=== PATIENT | male | born 1985 | race Caucasian/White ===

== ENCOUNTER 2017-06-27 00:22 | Emergency (ER) | payer SELFPAY ==
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
== END 2017-06-27 01:57 | disposition home or self-care (01) ==
LOC: NAV ERS 00:22
DX: S00.93XA Contusion of unspecified part of head, initial encounter (principal); F43.10 Post-traumatic stress disorder, unspecified; F17.210 Nicotine dependence, cigarettes, uncomplicated; Y04.0XXA Assault by unarmed brawl or fight, initial encounter
CPT/HCPCS: 70450